=== PATIENT | female | born 1995 | race Asian ===

== ENCOUNTER 2022-12-15 17:35 | Emergency (ER) | payer SELFPAY ==
[~2022-12-15] VITALS: Ht 170.2 cm; Wt 64.0 kg
[2022-12-15 17:35] VITALS: BP_SYST 139
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
--- NOTE | 2022-12-15 17:47 | NUR ---
ER DR. SALEH EXAMINING PT
[2022-12-15] MEDS ORDERED: IBUPROFEN 600 MG TABLET PO ONE (18:00)
[2022-12-15 18:16] VITALS: BP_SYST 139
--- NOTE | 2022-12-15 18:16 | NUR ---
Patient given written and verbal discharge instructions and verbalizes understanding. ER MD discussed with patient the results and treatment provided. Patient in stable condition. ID arm band removed. Opportunity for questions provided and answered. Medication side effect fact sheet provided.
== END 2022-12-15 18:16 ==
LOC: SED 17:35
DX: S00.12XA Contusion of left eyelid and periocular area, initial encounter (principal); Z79.899 Other long term (current) drug therapy; Y04.8XXA Assault by other bodily force, initial encounter; Y93.89 Activity, other specified; Y92.89 Other specified places as the place of occurrence of the external cause; Y99.8 Other external cause status
CPT/HCPCS: 99283